=== PATIENT | female | born 1980 | race Caucasian/White ===

== ENCOUNTER 2017-04-23 13:40 | Emergency (ER) | payer SELFPAY ==
[~2017-04-23] VITALS: Ht 175.3 cm; Wt 81.8 kg
[~2017-04-23 13:40] MED LIST: MELO-259 PO; RANI75TA30 PO; ROB500 PO; xanax
[2017-04-23 13:45] VITALS: BP 135/66; PULSE 102; RESP 16; O2SAT 98
--- NOTE | 2017-04-23 13:58 | ED.REPORT ---
HPI-Chest Pain Under 40 Date of Service Apr 23, 2017 ED Provider: Noel York History of Present Illness: 36yo female with intermittent L sided chest pain into L arm for several months. She was seen in this ED for similar symptoms in September,, and deemed to have musculoskeletal strain at that time. This past week, Pt did a lot of heavy lifting while moving her Grandmother's belongings. She has sharp L lateral chest p[ain that radiates to L arm, worse with walking and arm movement. Mild tenderness to palpation of chest wall. + smoker, no known FH of early heart disease. Nursing Notes Stated Complaint: NECK/ARM/CHEST PAIN Chief Complaint: Chest Pain Nursing Notes Reviewed: Yes Allergies: Coded Allergies: No Known Allergies (Verified Allergy, Unknown, 04/23/17) Scheduled Meloxicam (Meloxicam) 7.5 Mg Tablet 7.5 MG PO DAILY Methocarbamol (Methocarbamol) 500 Mg Tablet 1,000 MG PO TID Ranitidine HCl (Acid Manager Internal) 75 Mg Tablet 75 MG PO DAILY Scheduled PRN ([xanax]) PRN General Time Seen by MD: 13:54 Chief Complaint Chest pain Hx Obtained From: Patient Arrived By: Walk-in Sudden in Onset?: Yes Onset Occurred: 5 days ago Risk Factors )( CAD Risk Stratification Smoking TAD Risk Stratification Risk factors reviewed )( PE Risk Stratification Risk factors reviewed HEART Score HEART for MACE: Low index of susp (0), Normal ECG (0), Age under 45 (0), 1-2 CAD risk factors (1), < or = to NL troponin (0) HEART for MACE Score: 0-3 (low risk 0.9%-1.7%) PERC Rule Heart rate 100 or over PERC Result: One or more crit "Yes" Well's Criteria for PE HR > 100 (1.5) Well's PE Score: 0-2 pts (low risk 3.6%) Past Medical History Past Medical History Healthy Past Surgical History None Smoking History Current Every Day Smoker Social History Alcohol Use: Denies alcohol use Drug Use: Denies drug use Ambulatory Status Independent Review of Systems Constitutional: Denies: Chills, Fever Respiratory: Reports: Pleuritic pain, Denies: Hemoptysis, Shortness of breath Cardiovascular: Reports: Chest pain GI: Denies: Abdominal pain Physical Exam Initial Vital Signs Vital Signs (First) Date Time Temp Pulse Resp B/P Pulse Ox O2 Delivery O2 Flow Rate FiO2 04/23/17 13:45 36.4 102 16 135/66 98 Room Air Initial VS: Reviewed General/Constitutional: Awake, Alert, No acute distress, Not toxic appearing Respiratory / Chest: Atraumatic, Breath sounds NL, Breath sounds = bilat, No respiratory distress Chest Wall / Ribs: Positive: Chondral cartil tender L Breast: Positive: Tenderness L, Negative: Erythema L, Erythema R, Fluctuance L, Fluctuance R, Mass L, Mass R , Nipple discharge L, Nipple discharge R Cardiovascular: Heart rate NL, Regular rhythm, Heart sounds NL Conchis, RN, chaperoned breast exam. Neck: Supple, Full range of motion, No adenopathy Abdomen: Soft, Non-tender Back: Atraumatic, Inspection NL, Non-tender Interpretation & Diagnostics Lab Results Interpretation Result Diagram: 04/23/17 1413 04/23/17 1413 Test 04/23/17 14:13 04/23/17 14:50 White Blood Count 13.0th/mm3 (3.8-10.1) Red Blood Count 4.07mil/mm3 (3.90-5.20) Hemoglobin 13.3g/dL (12.0-15.6) Hematocrit 38.9% (35.0-46.0) Mean Corpuscular Volume 95.6fL (81-100) Mean Corpuscular Hemoglobin 32.7pg (27.0-35.0) Mean Corpuscular Hemoglobin Concent 34.2% (32.0-37.0) Red Cell Distribution Width 13.4% (12.3-15.4) Platelet Count 278bil/L (150-400) Neutrophils (%) (Auto) 66.8% (40-74) Lymphocytes (%) (Auto) 22.1% (14-46) Monocytes (%) (Auto) 7.9% (4-12) Eosinophils (%) (Auto) 2.8% (0-5) Basophils (%) (Auto) 0.2% (0-3) D-Dimer < 0.50mg/L FEU (<0.50) Sodium Level 140mEq/L (134-144) Potassium Level 3.8mEq/L (3.5-5.2) Chloride Level 102mEq/L (97-108) Carbon Dioxide Level 22mmol/L (18-29) Blood Urea Nitrogen 12mg/dL (6-20) Creatinine 0.66mg/dL (0.57-1.00) Estimat Glomerular Filtration Rate 145mL/min (>59) Glucose Level 96mg/dL (60-99) Calcium Level 9.4mg/dL (8.5-10.1) Magnesium Level 1.8mg/dL (1.6-2.6) Total Bilirubin 0.2mg/dL (0.0-1.2) Aspartate Amino Transf (AST/SGOT) 21U/L (0-50) Alanine Aminotransferase (ALT/SGPT) 18U/L (0-32) Alkaline Phosphatase 80U/L (25-150) Troponin T < 0.010ug/L (0.0-0.011) Total Protein 6.9g/dL (6.4-8.4) Albumin 4.1g/dL (3.4-5.0) Hold Urine Received (Received) ECG Interpretation Normal ECG Interpretation: Normal ECG w/ rate of... (76), Normal sinus rhythm, No acute ischemic changes X-Ray Chest Interpretation Chest Xray Interpretation: PROCEDURE: X-RAY CHEST ONE VIEW, PORTABLE ([id number]) INDICATIONS: CHEST PAIN TECHNIQUE: One view of the chest was acquired. COMPARISON: [facility], , XR CHEST 2VW, 09/26/2016, 8:53. FINDINGS: Surgical changes and devices: None. Lungs and pleura: No pleural effusions or pneumothorax. Lungs are clear. Mediastinum: Mediastinal contours appear normal. Heart size is normal. Bones and chest wall: No suspicious bony lesions. Overlying soft tissues appear unremarkable. IMPRESSION: Normal for age, source of current symptoms is not seen. Dictated by: Sreekanth Kidd M.D. on 04/23/2017 at 14:28 Approved by: Sreekanth Kidd M.D. on 04/23/2017 at 14:28 Re-Eval/Medical Decision Med Decision/Clinical Course Pt. has L sided chest wall pain, likely associated with strain of recent heavy lifting. No worrisome clinical features, and ED evaluation for [place],PE, are negative. Will treat symptomatically and encouraged recheck with PCP next month. Counseled Regarding: Diagnosis, Lab results, Need for follow-up, When/why to return to ED Discharge & Departure Shift Change Sign-Out Response to Therapy: Improved Pt. sleeping comfortably ay 15:30 in exam room. Primary Impression: Chest pain Chest pain type: other chest pain Qualified Code: R07.89 - Other chest pain Disposition: Home Patient Instructions: Chest Pain (ED) Additional Instructions: Rest, local heat, try to cut down on tobacco use. Take meds as prescribed. Follow up with your doctor next week. Return to ED if anything worsens. Referrals: [facility] E[facility]vising Provider for APC: Maurilio Chau Christopher R PAC Apr 23, 2017 13:58
[2017-04-23 14:22] LABS: BASOPHILS % (AUTO) 0.2 % (0-3); EOSINOPHILS % (AUTO) 2.8 % (0-5); MONOCYTES % (AUTO) 7.9 % (4-12); Mean Corpuscular Hemoglobin 32.7 pg (27.0-35.0); Mean Corpuscular Volume 95.6 fL (81-100); NEUTROPHILS % (AUTO) 66.8 % (40-74); Platelet Count 278 bil/L (150-400)
--- NOTE | 2017-04-23 14:30 | DRSVH ---
PROCEDURE: X-RAY CHEST ONE VIEW, PORTABLE ([id number]) INDICATIONS: CHEST PAIN TECHNIQUE: One view of the chest was acquired. COMPARISON: [facility], CR, XR CHEST 2VW, 09/26/2016, 8:53. FINDINGS: Surgical changes and devices: None. Lungs and pleura: No pleural effusions or pneumothorax. Lungs are clear. Mediastinum: Mediastinal contours appear normal. Heart size is normal. Bones and chest wall: No suspicious bony lesions. Overlying soft tissues appear unremarkable. IMPRESSION: Normal for age, source of current symptoms is not seen. Dictated by: Sreekanth Kidd M.D. on 04/23/2017 at 14:28 Approved by: Sreekanth Kidd M.D. on 04/23/2017 at 14:28
[2017-04-23 14:49] LABS: TROPONIN T < 0.010 ug/L (0.0-0.011)
[2017-04-23 14:59] LABS: Magnesium 1.8 mg/dL (1.6-2.6)
[2017-04-23] MEDS ORDERED: NAPR500T PO (15:46)
[2017-04-23] MEDS ORDERED: CYCL10TA9 PO (15:46)
[2017-04-23 16:09] VITALS: BP 105/65; PULSE 71; O2SAT 98
== END 2017-04-23 16:22 | disposition home or self-care (01) ==
LOC: SED 13:40
DX: R07.89 Other chest pain (principal); X50.0XXA Overexertion from strenuous movement or load, initial encounter; Y93.89 Activity, other specified; Y92.89 Other specified places as the place of occurrence of the external cause; Y99.8 Other external cause status; F17.200 Nicotine dependence, unspecified, uncomplicated

== ENCOUNTER 2017-07-17 13:53 | Emergency (ER) | payer OTHER ==
[~2017-07-17 13:53] MED LIST changes: +CYCL10TA9 PO; +NAPR500T PO
[2017-07-17 13:56] VITALS: BP 114/70; PULSE 83; RESP 20; O2SAT 98
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
[2017-07-17] MEDS ORDERED: SILV20CR4 TP (14:36)
[2017-07-17] MEDS ORDERED: HYDR-4003 PO (14:39)
[2017-07-17 15:53] VITALS: BP 113/79; PULSE 67; RESP 20; O2SAT 100
== END 2017-07-17 15:53 | disposition home or self-care (01) ==
LOC: SED 13:53
DX: T25.221A Burn of second degree of right foot, initial encounter (principal); T31.0 Burns involving less than 10% of body surface; X03.3XXA Fall due to controlled fire, not in building or structure, initial encounter; Y93.89 Activity, other specified; Y99.8 Other external cause status; Y92.017 Garden or yard in single-family (private) house as the place of occurrence of the external cause; F17.200 Nicotine dependence, unspecified, uncomplicated